=== PATIENT | female | born 1960 | race Two or more races ===

== ENCOUNTER 2016-11-20 17:34 | Emergency (ER) | payer SELFPAY ==
[~2016-11-20] VITALS: Ht 157.5 cm; Wt 55.8 kg
[~2016-11-20 17:34] MED LIST: LEVO75TA50 PO; PHE100C PO
[2016-11-20 18:23] LABS: Basophils # (auto) 0 uL; Basophils % (auto) 0.6 % (0.0-2.0); Eosinophils # (auto) 0.3 uL; Eosinophils % (auto) 5.4 % (0.0-7.0); Hematocrit 33.3 % (36.0-46.0); Hemoglobin 11.7 g/dL (12.2-16.2); Lymphocytes # (auto) 2.9 uL; Lymphocytes % (auto) 50.9 % (10.0-50.0); Mean Corpuscular Hemoglobin 31.1 pg (28.0-32.0); Mean Corpuscular Hgb Conc. 35.1 g/dL (32.0-36.0); Mean Corpuscular Volume 88.6 fL (80.0-100.0); Mean Platelet Volume 8.1 fL (7.4-10.4); Monocytes # (auto) 0.5 uL; Monocytes % (auto) 9.1 % (0.0-12.0); Neutrophils # (auto) 1.9 uL; Platelet Count (auto) 180 10^3/uL (140-450); Red Cell Distribution Width 12.1 % (11.6-16.0); White Blood Cell 5.7 10^3/uL (4.4-10.8)
[2016-11-20 18:41] LABS: Albumin 3.7 g/dL (3.4-5.0); BUN/Creatinine Ratio 23.1; Calcium 8.4 mg/dL (8.5-10.1); Potassium 4.1 mmol/L (3.5-5.1)
[2016-11-20 18:43] LABS: Bilirubin, Total 0.3 mg/dL (0.2-1.0); Total Protein 8.1 g/dL (6.4-8.2)
[2016-11-20 21:02] LABS: Amylase 64 U/L (25-115); Magnesium 2.2 mg/dL (1.6-2.6)
[2016-11-20] MEDS ORDERED: DEXAMETHASONE SOD PHOS 10MG/1ML VIAL INJ ONE (21:05)
[2016-11-20] MEDS ORDERED: MANNITOL FTV 25% 12.5 GM/50 ML 0 ML IV ONE ×2 (21:05→21:11)
[2016-11-20] MEDS ORDERED: MANNITOL 20 % (20GM/100ML) 500 ML IV ONE (21:13)
[2016-11-20] MEDS ORDERED: NALBUPHINE HCL 10 MG/1ml INJECTION IV ONE (21:45)
[2016-11-20] MEDS ORDERED: FAMOTIDINE (10MG/ML) 2ML VL IV ONE (21:45)
[2016-11-20] MEDS ORDERED: ONDANSETRON HCL 4 MG/2 ML VIAL IV ONE (21:45)
[2016-11-20] MEDS ORDERED: SODIUM CHLORIDE 0.9% 1,000 ML IV ONE (21:45)
[2016-11-20 22:38] LABS: Urine Bilirubin Negative (Negative); Urine Color Yellow (Yellow); Urine Glucose Normal (Normal); Urine Ketone Negative (Negative); Urine Nitrite Negative (Negative); Urine RBC 13 /hpf (0 - 4); Urine Squamous Epithelial Cell FEW /hpf (<5); Urine Urobilinogen Normal (Negative); Urine pH 6.5 (5.0-8.0)
[2016-11-20 22:44] LABS: Urine Blood 2+ /uL (Negative)
[2016-11-21 00:51] VITALS: BP 132/73
== END 2016-11-21 00:53 | disposition home or self-care (01) ==
LOC: ER 17:34
DX: K29.70 Gastritis, unspecified, without bleeding (principal); Z79.899 Other long term (current) drug therapy
CPT/HCPCS: 36415; 76705; 80053; 81001; 82150; 83690; 83735; 84484; 84702; 85025; 93005; 96361; 96374; 96375; 99285; J1100; J2300; J2405; J3490; J7030

== ENCOUNTER 2018-09-20 13:06 | Inpatient (IN) | payer SELFPAY ==
[~2018-09-20] VITALS: Ht 160 cm; Wt 55.6 kg
[2018-09-20] MEDS ORDERED: ACETAMINOPHEN 325 MG TAB PO ONE (13:30)
[2018-09-20] MEDS ORDERED: SODIUM CHLORIDE 0.9% 1,000 ML IVB ONE (13:53)
[2018-09-20 14:00] LABS: Basophils # (auto) 0 uL; Basophils % (auto) 0.4 % (0.0-2.0); Eosinophils # (auto) 0.1 uL; Eosinophils % (auto) 1.2 % (0.0-7.0); Hematocrit 31.9 % (36.0-46.0); Hemoglobin 11.1 g/dL (12.2-16.2); Lymphocytes # (auto) 1.9 uL; Lymphocytes % (auto) 22.1 % (10.0-50.0); Mean Corpuscular Hemoglobin 31.3 pg (28.0-32.0); Mean Corpuscular Hgb Conc. 34.9 g/dL (32.0-36.0); Mean Corpuscular Volume 89.6 fL (80.0-100.0); Monocytes # (auto) 0.6 uL; Monocytes % (auto) 7.4 % (0.0-12.0); Neutrophils # (auto) 5.9 uL; Neutrophils % (auto) 68.9 % (37.0-80.0); Nucleated Red Blood Cells % 0.1 %; Platelet Count (auto) 112 10^3/uL (140-450); Red Blood Cells 3.56 10^6/uL (4.0-5.20); Red Cell Distribution Width 12.4 % (11.8-14.3); White Blood Cell 8.5 10^3/uL (4.4-10.8)
[2018-09-20 14:12] LABS: Urine Bacteria MOD /hpf (None Seen); Urine Blood 2+ /uL (Negative); Urine Mucus FEW (None Seen); Urine Specific Gravity 1.013 (1.001-1.035); Urine WBC 851 /hpf (0 - 5); Urine WBC Clumps PRESENT /hpf (None Seen)
[2018-09-20 14:14] LABS: Alanine Aminotransferase 15 U/L (13-56); Albumin 3.7 g/dL (3.4-5.0); Anion Gap 8 (5-15); Aspartate Aminotransferase 27 U/L (15-37); BUN/Creatinine Ratio 16.4; Blood Alcohol < 3.0 mg/dL (0-5); Blood Urea Nitrogen 20 mg/dL (7-18); Calcium 7.8 mg/dL (8.5-10.1); Carbon Dioxide 24 mmol/L (21-32); Chloride 104 mmol/L (98-107); GFR African American 58 mL/min; GFR Non-African American 48 mL/min; Glucose 67 mg/dL (74-106); Sodium 136 mmol/L (136-145)
[2018-09-20 14:19] LABS: Alkaline Phosphatase 156 U/L (45-117); Bilirubin, Total 0.6 mg/dL (0.2-1.0); Total Protein 8.3 g/dL (6.4-8.2)
[2018-09-20] MEDS ORDERED: cefTRIAXone 1GM/50ML D5W 50 ML IV ONE (16:00)
[2018-09-20] MEDS ORDERED: NITROGLYCERIN 0.4 MG SL TAB SL PRN (16:15)
[2018-09-20] MEDS ORDERED: LORazepam 2MG/ML-1ML VIAL IV PRN (16:15)
[2018-09-20] MEDS ORDERED: LACTULOSE 20Gm/30ML SOLN PO PRN (16:15)
[2018-09-20] MEDS ORDERED: traMADol HCL 50 MG TAB PO PRN (16:15)
[2018-09-20] MEDS ORDERED: TEMAZEPAM 15 MG CAP PO PRN (16:15)
[2018-09-20] MEDS ORDERED: DEXTROSE (50%) 50ML SYRG IV PRN (16:15)
[2018-09-20] MEDS ORDERED: MORPHINE SULF INJ 2 MG/ML SYRINGE 1ML IV PRN (16:15)
[2018-09-20] MEDS ORDERED: PROMETHAZINE HCL 25 MG/ML 1ML IV PRN (16:15)
[2018-09-20] MEDS ORDERED: ONDANSETRON HCL 4 MG/2 ML VIAL ONE (16:22)
[2018-09-20] MEDS ORDERED: ONDANSETRON HCL 4 MG/2 ML VIAL IV ONE (16:30)
[2018-09-20] MEDS: D5W/SOD CHLO 0.9% 1,000 ML IV SCH (16:36)
[2018-09-20 17:07] LABS: Alcohol, Urine < 3.0 mg/dL (0-5); Amphetamine Screen, Urine NEGATIVE (NEGATIVE); Barbiturate Scree,Urine NEGATIVE (NEGATIVE); Benzodiazephine Screen, Urine NEGATIVE (NEGATIVE); Cannabinoid Screen, Urine NEGATIVE (NEGATIVE); Cocaine Screen, Urine NEGATIVE (NEGATIVE); Opiate Scree,Urine NEGATIVE (NEGATIVE); Phencyclidine Screen, Urine NEGATIVE (NEGATIVE)
--- NOTE | 2018-09-20 20:00 | NUR ---
Telemetry admit from ER NONA GREER admitted to Telemetry. Patient oriented to PRABHU RAUSCH, primary RN, unit, room 292, bed A, and unit policies regarding patient care and visiting hours. Patient now on continuous telemetry monitoring, tele box #9 and telemetry reading on arrival to unit is NSR. Patient weighed by bedscale and encouraged to call if they need something. Seizure precautions are in place. All questions and concerns addressed, patient verbalized understanding.
[2018-09-20] MEDS: ACCU-CHEK COMFORT CURVE STRIP VI SCH ×2 (20:39→23:46)
[2018-09-20 21:00] VITALS: BP 113/77
[2018-09-20 21:46] VITALS: BP 113/77
[2018-09-20] MEDS ORDERED: LORazepam 0.5 MG TAB PO PRN (23:00)
[2018-09-21] MEDS: D5W/SOD CHLO 0.9% 1,000 ML IV SCH ×2 (01:44→12:39)
--- NOTE | 2018-09-21 04:43 | NUR ---
Critical Lab Received call from lab. Anaerobic and aerobic blood cultures are positive for Gram Neg rods.
[2018-09-21 04:46] VITALS: BP 87/45
[2018-09-21] MEDS: ACCU-CHEK COMFORT CURVE STRIP VI SCH ×5 (04:54→20:27)
--- NOTE | 2018-09-21 05:00 | NUR ---
Hospitalist paged regarding critical lab.
[2018-09-21 08:00] VITALS: BP 99/52
--- NOTE | 2018-09-21 08:00 | NUR ---
Opening Shift Note Assumed care of the patient from the hotel night auditor RN. The patient is A&Ox4, no signs or symptoms of distress. Assessed with dealmaker. Educated the patient on POC and patient verbalized understanding. The patient's call light is within reach, bed alarm on and bed in the lowest, locked position.
[2018-09-21] MEDS ORDERED: cefTRIAXone 1GM/50ML D5W 50 ML IV SCH (09:00)
--- NOTE | 2018-09-21 09:22 | NUR ---
Patient's son called. Spoke with son, after receiving the patient's password. He asked how his mother was doing and I told him she was down for a CT of the abdomen and pelvis. The patient is in good spirits and she is alert and oriented. I do not have any other information because the physician has not, as of now, been in this morning. He said "thank you" and said he will be in this morning to see her. Will continue to monitor. Addendum: 09/21/18 at 0926 by MAGALY JOHNSON RN wrong patient
[2018-09-21 09:24] VITALS: BP 99/52
[2018-09-21] MEDS: PANTOPRAZOLE 40 MG TAB PO SCH (11:02)
[2018-09-21] MEDS: ENOXAPARIN SOD 40 MG/0.4 ML SYRINGE SC SCH (11:03)
--- NOTE | 2018-09-21 11:10 | NUR ---
Dr. Gabriel Del Real at bedside
[2018-09-21] MEDS: PIPERACILLIN-TAZOB 3.375GM 100 ML IV SCH ×2 (12:08→18:00)
[2018-09-21 13:00] VITALS: BP 107/42
--- NOTE | 2018-09-21 13:00 | NUR ---
FEBRILE PATIENT HAD A TEMP OF 100.4. RECHECKED TEMP. AND IT WAS 101.0 F. COOLING MEASURES STARTED. TYLENOL GIVEN AND ICE PACKS PLACED UNDER THE PATIENT'S ARMS. WILL CONTINUE TO MONITOR.
[2018-09-21] MEDS: ACETAMINOPHEN 500 MG TAB PO PRN (13:03)
--- NOTE | 2018-09-21 16:22 | NUR ---
Temp recheck 99.2
--- NOTE | 2018-09-21 16:24 | NUR ---
Low BP Patient blood pressure 85/[address] Gabriel Del Real. He ordered 1000L bolus of NS over 2hrs. Will place order and complete intervention. Will continue to monitor.
[2018-09-21] MEDS ORDERED: SODIUM CHLORIDE 0.9% 1,000 ML IV ONE (16:30)
[2018-09-21 17:00] VITALS: BP 85/49
[2018-09-21 22:00] VITALS: BP 91/49
[2018-09-22] VITALS (7 sets, daily range): BP systolic 103–121; BP diastolic 46–76
[2018-09-22] MEDS: D5W/SOD CHLO 0.9% 1,000 ML IV SCH ×3 (03:36→17:38)
[2018-09-22] MEDS: PIPERACILLIN-TAZOB 3.375GM 100 ML IV SCH ×4 (03:37→17:38)
[2018-09-22] MEDS: ACCU-CHEK COMFORT CURVE STRIP VI SCH ×5 (03:38→16:30)
[2018-09-22 05:58] LABS: Basophils # (auto) 0 uL; Basophils % (auto) 0.4 % (0.0-2.0); Eosinophils # (auto) 0.1 uL; Eosinophils % (auto) 1.6 % (0.0-7.0); Hematocrit 25.4 % (36.0-46.0); Lymphocytes % (auto) 13.8 % (10.0-50.0); Mean Corpuscular Hemoglobin 31.5 pg (28.0-32.0); Mean Corpuscular Hgb Conc. 35.3 g/dL (32.0-36.0); Mean Corpuscular Volume 89.2 fL (80.0-100.0); Monocytes # (auto) 0.4 uL; Monocytes % (auto) 5.5 % (0.0-12.0); Neutrophils # (auto) 5.6 uL; Neutrophils % (auto) 78.7 % (37.0-80.0); Nucleated Red Blood Cells % 0.1 %; Platelet Count (auto) 77 10^3/uL (140-450); Red Blood Cells 2.85 10^6/uL (4.0-5.20); Red Cell Distribution Width 12.7 % (11.8-14.3); White Blood Cell 7.1 10^3/uL (4.4-10.8)
--- NOTE | 2018-09-22 06:44 | NUR ---
UP TO BSC WITH ASSIST, CALL LIGHT WITHIN REACH, REMINDED PT TO CALL FOR ASSIST BEFORE GETTING OOB, PT VERBALIZED UNDERSTANDING.
--- NOTE | 2018-09-22 06:54 | NUR ---
LAB CALLED DILANTIN LEVEL 29.8
--- NOTE | 2018-09-22 07:06 | NUR ---
REPORT GIVEN TO AM NURSE POC REVIEWED
[2018-09-22] MEDS: PANTOPRAZOLE 40 MG TAB PO SCH (10:18)
[2018-09-22] MEDS: ENOXAPARIN SOD 40 MG/0.4 ML SYRINGE SC SCH (10:18)
--- NOTE | 2018-09-22 19:49 | NUR ---
received report from day rn poc reviewed
[2018-09-23] MEDS: PIPERACILLIN-TAZOB 3.375GM 100 ML IV SCH ×5 (02:26→23:41)
[2018-09-23] MEDS: ACCU-CHEK COMFORT CURVE STRIP VI SCH ×7 (02:26→20:00)
--- NOTE | 2018-09-23 05:04 | NUR ---
up to bsc with assist no c/o discomfort, bed alarm intact call light within reach
[2018-09-23 05:24] VITALS: BP 107/61
[2018-09-23] MEDS: D5W/SOD CHLO 0.9% 1,000 ML IV SCH ×2 (05:35→14:15)
[2018-09-23] MEDS: ACETAMINOPHEN 500 MG TAB PO PRN ×2 (05:35→18:38)
[2018-09-23 06:23] LABS: Basophils # (auto) 0 uL; Basophils % (auto) 0.6 % (0.0-2.0); Eosinophils # (auto) 0.2 uL; Hematocrit 25.6 % (36.0-46.0); Lymphocytes # (auto) 1.4 uL; Lymphocytes % (auto) 34.2 % (10.0-50.0); Mean Corpuscular Hemoglobin 31.4 pg (28.0-32.0); Mean Corpuscular Volume 89.7 fL (80.0-100.0); Monocytes # (auto) 0.3 uL; Monocytes % (auto) 8.7 % (0.0-12.0); Neutrophils # (auto) 2.1 uL; Neutrophils % (auto) 52.5 % (37.0-80.0); Platelet Count (auto) 87 10^3/uL (140-450); Red Blood Cells 2.86 10^6/uL (4.0-5.20); Red Cell Distribution Width 12.4 % (11.8-14.3); White Blood Cell 3.9 10^3/uL (4.4-10.8)
--- NOTE | 2018-09-23 06:58 | NUR ---
report given to am nurse poc reviewed
[2018-09-23 08:41] VITALS: BP 106/70
[2018-09-23] MEDS: PANTOPRAZOLE 40 MG TAB PO SCH (10:57)
[2018-09-23] MEDS: ENOXAPARIN SOD 40 MG/0.4 ML SYRINGE SC SCH (10:58)
[2018-09-23 13:00] VITALS: BP 125/68
--- NOTE | 2018-09-23 13:15 | NUR ---
Hospitalist at bedside MD Del Real at bedside, aware of patients status. Awaiting new orders at this time. Per lab, they are working on sensitivity results and will be available in "10 mins" MD aware and will review them. Will place consult with neurologist as ordered, cont care.
--- NOTE | 2018-09-23 16:32 | NUR ---
assessment Patient is a 57 year old female who is alert and oriented. Patients daughter is at bedside translating for us. Patients cognitive abilities are intact. Prior to admission patient lived home with her [place] and functioned independently. Patient informed me she is able to care for her own ADLs. Per patient she will return home to her prior living arrangements post discharge and family will transport her home. Patient informed me she has no need for DME. Patient has no insurance. Patient is over income for [employer]. Patient is a true self pay. I informed patient she has a right to speak to a licensed master social worker regarding all care. I informed patient she has a right to participate in any and all discharge planning. Patient is aware of visiting hours on the hospital floor. I informed patient she has a right to privacy. Patient does not have a POA and advanced directive. I have offered patient information on POA and advanced directives. I informed the patient the advantages and benefits of having an Advanced Directive. Patient verbalized understanding and agreed to discharge plan. Per consult alina ovalle, living situation. Patient has been on medication for her seizures for the past 7 years. Please see above note for living situation. Addendum: 09/23/18 at 1637 by Camille KENNEDY Amended: Links added.
[2018-09-23 17:07] VITALS: BP 120/76
[2018-09-23] MEDS ORDERED: HYDROcodone-ACET 5/325MG TAB PO PRN (18:30)
--- NOTE | 2018-09-23 19:15 | NUR ---
Patient care endorsed endorsed care to Cecy beyer. Patient laying in bed in no acute distress or sob noted. Call light within reach.
--- NOTE | 2018-09-23 19:35 | NUR ---
Opening Shift Note Assumed care of patient, awake and alert. No S/S of distress/SOB or pain. Turkmen speaking. Instructed on POC translated by BLAYNE Garrido. Bed in lowest position, call light within reach, will continue to monitor for changes Q1hr and PRN.
--- NOTE | 2018-09-23 21:20 | NUR ---
Per Pharmacist Sita, she spoke to Dr. Rosa regarding dose of Phenytoin, and per MD to start medicine tonight. Dr. Rosa aware of critical Phenytoin level
[2018-09-23 21:30] VITALS: BP 118/63
[2018-09-23] MEDS ORDERED: PHENYTOIN SODIUM 100 MG CAP PO SCH (22:00)
[2018-09-24] MEDS: D5W/SOD CHLO 0.9% 1,000 ML IV SCH ×2 (02:31→11:58)
[2018-09-24] MEDS: ACCU-CHEK COMFORT CURVE STRIP VI SCH ×4 (04:00→10:59)
[2018-09-24 05:07] VITALS: BP 110/61
[2018-09-24 05:48] LABS: Basophils # (auto) 0 uL; Basophils % (auto) 0.8 % (0.0-2.0); Eosinophils # (auto) 0.2 uL; Eosinophils % (auto) 4.8 % (0.0-7.0); Hemoglobin 9.8 g/dL (12.2-16.2); Lymphocytes # (auto) 1.5 uL; Lymphocytes % (auto) 46.1 % (10.0-50.0); Mean Corpuscular Hgb Conc. 34.9 g/dL (32.0-36.0); Monocytes # (auto) 0.3 uL; Monocytes % (auto) 10.4 % (0.0-12.0); Neutrophils # (auto) 1.2 uL; Neutrophils % (auto) 37.9 % (37.0-80.0); Nucleated Red Blood Cells % 0.1 %; Platelet Count (auto) 99 10^3/uL (140-450); Red Blood Cells 3.14 10^6/uL (4.0-5.20); Red Cell Distribution Width 12.5 % (11.8-14.3); White Blood Cell 3.2 10^3/uL (4.4-10.8)
[2018-09-24] MEDS: PIPERACILLIN-TAZOB 3.375GM 100 ML IV SCH ×2 (05:54→11:58)
--- NOTE | 2018-09-24 06:25 | NUR ---
Received a critical phenytoin level of 23.6, paged hospitalist per protocol, awaiting call back
--- NOTE | 2018-09-24 06:40 | NUR ---
Hospitalist Toni called back and relayed Phenytoin level, no new order at this time, will endorse to barbara CISNEROS
--- NOTE | 2018-09-24 06:43 | NUR ---
Paged Dr. Rosa, awaiting call back
--- NOTE | 2018-09-24 07:50 | NUR ---
Assumed care of pt, awake and alert, no s&s of distress/sob or pain noted, instructed on poc and to call for assist prn, will continue to monitor for changes q1h and prn.
[2018-09-24 09:00] VITALS: BP 121/76
[2018-09-24] MEDS: PANTOPRAZOLE 40 MG TAB PO SCH (09:31)
[2018-09-24] MEDS: ENOXAPARIN SOD 40 MG/0.4 ML SYRINGE SC SCH (09:32)
--- NOTE | 2018-09-24 12:16 | NUR ---
Pt awake and alert, no s&s of distress/sob or pain noted, will continue to monitor for changes q1h and prn.
--- NOTE | 2018-09-24 12:34 | NUR ---
Nutrition Assessment Notes please see attached link for complete assessment Est. Needs BW [id number] kcal (25-30 kcal/kgBW), 56-62 gms pro (1.0-1.1 gm/kgBW r/t elev T). Will continue to monitor pertinent labs and reassess nutrient need prn. Addendum: 09/24/18 at [address] Amended: Links added.
--- NOTE | 2018-09-24 12:41 | NUR ---
Dr. Gabriel Del Real in to see pt, informed lovenox held this am because platelets at 99, pt reports she is not diabetic and on d5ns, and dilantin level elevated and has a scheduled dose for tonight, orders received.
[2018-09-24] MEDS ORDERED: LEVOFLOXACIN 500MG 100 ML IV ONE (12:45)
[2018-09-24 12:49] VITALS: BP 118/58
--- NOTE | 2018-09-24 15:56 | NUR ---
Pt awake and alert, no s&s of distress/sob or pain noted, will continue to monitor for changes q1h and prn.
[2018-09-24 17:00] VITALS: BP 101/66
--- NOTE | 2018-09-24 20:10 | NUR ---
called: Dr. Rosa called to remind RN to hold Dilantin medication tonight.Continue care.
[2018-09-24 22:00] VITALS: BP 116/68
[2018-09-25] MEDS: ACETAMINOPHEN 500 MG TAB PO PRN (03:29)
[2018-09-25 04:58] VITALS: BP 110/51
--- NOTE | 2018-09-25 07:30 | NUR ---
Opening Shift Note Assumed care of patient, patient comfortably resting in bed. No S/S of distress/SOB or pain. Instructed on POC and to call for assist PRN, will continue to monitor for changes Q1hr and PRN.
[2018-09-25 08:00] VITALS: BP 125/59
[2018-09-25 09:00] VITALS: BP 123/59
--- NOTE | 2018-09-25 09:50 | NUR ---
Dr. Nieves gave Orders for Dilantin 300mg po hs. Orders read back and verified.
[2018-09-25] MEDS ORDERED: LEVOFLOXACIN 250MG 50 ML IV SCH (10:00)
[2018-09-25] MEDS: PANTOPRAZOLE 40 MG TAB PO SCH (11:46)
[2018-09-25 12:06] VITALS: BP 125/59
[2018-09-25 13:00] VITALS: BP 117/65
--- NOTE | 2018-09-25 14:03 | NUR ---
Discharge instructions given as ordered. Encourage to follow up with PMD as instructed. All questions and concerns addressed. Patient verbalized understanding. IV removed with catheter intact, pressure dressing applied. Patient taken to vehicle via wheelchair with all personal belongings, accompanied by staff and family member. No distress noted at time of departure.
[2018-09-25] MEDS ORDERED: PHENYTOIN SODIUM 100 MG CAP PO SCH (22:00)
== END 2018-09-25 14:03 | disposition home or self-care (01) | DRG 871 ==
LOC: EDBD 13:06 → ER 13:10 → TELE 16:14 → TELE-WESTW 20:02 → WEST WING 09-23 23:12
PROVIDERS: ADMIT Internal Medicine; ATTEND Family Medicine
DX: A41.51 Sepsis due to Escherichia coli [E. coli] (principal); G93.41 Metabolic encephalopathy; N39.0 Urinary tract infection, site not specified; D63.8 Anemia in other chronic diseases classified elsewhere; E03.9 Hypothyroidism, unspecified; G40.909 Epilepsy, unspecified, not intractable, without status epilepticus; H54.61 Unqualified visual loss, right eye, normal vision left eye; T42.0X5A Adverse effect of hydantoin derivatives, initial encounter; Z91.81 History of falling; Y92.89 Other specified places as the place of occurrence of the external cause; Z79.899 Other long term (current) drug therapy; D69.6 Thrombocytopenia, unspecified; R73.9 Hyperglycemia, unspecified; K80.20 Calculus of gallbladder without cholecystitis without obstruction
CPT/HCPCS: 36415; 70450; 71045; 76705; 80053; 80185; 80307; 80320; 81001; 82962; 83036; 83605; 84484; 85025; 85652; 87040; 87077; 87086; 87186; 93005; 94761; 95819; 96361; 96365; G0378; J0696; J1956; J2405; J2543; J7042

== ENCOUNTER 2018-11-10 17:58 | Emergency (ER) | payer SELFPAY ==
[~2018-11-10] VITALS: Ht 157.5 cm; Wt 54.4 kg
[2018-11-10 18:25] VITALS: BP 93/46
[2018-11-10 19:38] LABS: Basophils # (auto) 0 uL; Basophils % (auto) 0.6 % (0.0-2.0); Eosinophils # (auto) 0.3 uL; Eosinophils % (auto) 5.1 % (0.0-7.0); Hematocrit 31.9 % (36.0-46.0); Hemoglobin 10.9 g/dL (12.2-16.2); Lymphocytes # (auto) 2.7 uL; Lymphocytes % (auto) 49.3 % (10.0-50.0); Mean Corpuscular Hemoglobin 30.1 pg (28.0-32.0); Mean Corpuscular Hgb Conc. 34.1 g/dL (32.0-36.0); Mean Corpuscular Volume 88.4 fL (80.0-100.0); Monocytes # (auto) 0.4 uL; Neutrophils # (auto) 2.1 uL; Nucleated Red Blood Cells % 0.1 %; Platelet Count (auto) 107 10^3/uL (140-450); Red Blood Cells 3.61 10^6/uL (4.0-5.20); Red Cell Distribution Width 13.4 % (11.8-14.3); White Blood Cell 5.5 10^3/uL (4.4-10.8)
[2018-11-10 19:50] LABS: Albumin 3.9 g/dL (3.4-5.0); Anion Gap 9 (5-15); BUN/Creatinine Ratio 20.2; Blood Urea Nitrogen 20 mg/dL (7-18); Calcium 8.4 mg/dL (8.5-10.1); Carbon Dioxide 23 mmol/L (21-32); Chloride 105 mmol/L (98-107); GFR African American 74 mL/min; GFR Non-African American 61 mL/min; Glucose 96 mg/dL (74-106); Magnesium 2.5 mg/dL (1.6-2.6); Potassium 4.3 mmol/L (3.5-5.1); Sodium 137 mmol/L (136-145)
[2018-11-10 19:56] LABS: Alanine Aminotransferase 20 U/L (13-56); Alkaline Phosphatase 192 U/L (45-117); Aspartate Aminotransferase 29 U/L (15-37); Bilirubin, Total 0.2 mg/dL (0.2-1.0); Total Protein 8.8 g/dL (6.4-8.2)
== END 2018-11-11 03:00 | disposition left against medical advice (07) ==
LOC: ER 18:07
DX: R42 Dizziness and giddiness (principal); Z53.21 Procedure and treatment not carried out due to patient leaving prior to being seen by health care provider
CPT/HCPCS: 36415; 70450; 71046; 80053; 83735; 84484; 85025; 93005

== ENCOUNTER 2018-11-11 17:39 | Emergency (ER) | payer SELFPAY ==
[~2018-11-11] VITALS: Ht 154.9 cm; Wt 56.7 kg
[2018-11-11 18:11] LABS: Hematocrit 26.8 % (36.0-46.0); Hemoglobin 9.5 g/dL (12.2-16.2); Mean Corpuscular Hemoglobin 31.3 pg (28.0-32.0); Mean Corpuscular Hgb Conc. 35.4 g/dL (32.0-36.0); Mean Corpuscular Volume 88.3 fL (80.0-100.0); Platelet Count (auto) 79 10^3/uL (140-450); Red Blood Cells 3.03 10^6/uL (4.0-5.20); Red Cell Distribution Width 12.9 % (11.8-14.3)
[2018-11-11 18:28] LABS: Albumin 3.4 g/dL (3.4-5.0); Anion Gap 8 (5-15); Band Neutrophils % (manual) 0; Basophils % (manual) 0 (0.0-2.0); Blast Cells 0; Blood Urea Nitrogen 21 mg/dL (7-18); Calcium 7.4 mg/dL (8.5-10.1); Carbon Dioxide 24 mmol/L (21-32); Chloride 108 mmol/L (98-107); Glucose 91 mg/dL (74-106); Magnesium 2.5 mg/dL (1.6-2.6); Metamyelocytes % 0; Myelocytes % 0; Potassium 3.9 mmol/L (3.5-5.1); Promyelocytes % 0; Reactive Lymphocytes 0; Sodium 140 mmol/L (136-145)
[2018-11-11 18:33] LABS: Alanine Aminotransferase 16 U/L (13-56); Alkaline Phosphatase 162 U/L (45-117); Aspartate Aminotransferase 19 U/L (15-37); BUN/Creatinine Ratio 26.6; Bilirubin, Total 0.3 mg/dL (0.2-1.0); GFR African American 95 mL/min; GFR Non-African American 79 mL/min; Total Protein 7.2 g/dL (6.4-8.2)
[2018-11-11] MEDS ORDERED: ONDANSETRON HCL 4 MG/2 ML VIAL IV ONE (20:45)
[2018-11-11] MEDS ORDERED: SODIUM CHLORIDE 0.9% 1,000 ML IV ONE (20:45)
[2018-11-11 20:51] LABS: Lymphocytes % (manual) 59 (10.0-50.0)
[2018-11-11 20:52] LABS: Eosinophils % (manual) 5 (0-7); Monocytes % (manual) 7 (0-12)
[2018-11-11 20:59] LABS: Urine Bacteria NONE SEEN /hpf (None Seen); Urine Blood 1+ /uL (Negative); Urine Specific Gravity 1.015 (1.001-1.035); Urine WBC 3 /hpf (0 - 5)
[2018-11-11 21:05] LABS: INR 1.05 (0.9-1.15); Partial Thromboplastin Time 29.9 sec (23.64-32.05)
[2018-11-12 05:54] VITALS: BP 104/58
== END 2018-11-12 06:13 | disposition home or self-care (01) ==
LOC: EDUNIT# 17:39 → EDBD 17:39 → ER 17:43
DX: R42 Dizziness and giddiness (principal); R53.1 Weakness
CPT/HCPCS: 36415; 70450; 74176; 80053; 81001; 83690; 83735; 84484; 85007; 85027; 85610; 85730; 93005; 96361; 96374; 99284; J2405

== ENCOUNTER 2018-11-15 16:00 | Inpatient (IN) | payer SELFPAY ==
[~2018-11-15] VITALS: Ht 160 cm; Wt 55.6 kg
[2018-11-15 17:20] LABS: Basophils # (auto) 0 uL; Basophils % (auto) 0.7 % (0.0-2.0); Eosinophils # (auto) 0.2 uL; Eosinophils % (auto) 5.9 % (0.0-7.0); Hemoglobin 10.2 g/dL (12.2-16.2); Lymphocytes % (auto) 54.1 % (10.0-50.0); Mean Corpuscular Hemoglobin 30.5 pg (28.0-32.0); Mean Corpuscular Hgb Conc. 35.2 g/dL (32.0-36.0); Mean Corpuscular Volume 86.5 fL (80.0-100.0); Monocytes # (auto) 0.3 uL; Monocytes % (auto) 7.2 % (0.0-12.0); Neutrophils # (auto) 1.2 uL; Neutrophils % (auto) 32.1 % (37.0-80.0); Nucleated Red Blood Cells % 0.1 %; Platelet Count (auto) 81 10^3/uL (140-450); Red Blood Cells 3.35 10^6/uL (4.0-5.20); Red Cell Distribution Width 12.7 % (11.8-14.3); White Blood Cell 3.7 10^3/uL (4.4-10.8)
[2018-11-15 17:54] LABS: Alanine Aminotransferase 20 U/L (13-56); Albumin 3.6 g/dL (3.4-5.0); Anion Gap 9 (5-15); Aspartate Aminotransferase 32 U/L (15-37); BUN/Creatinine Ratio 21.1; Blood Urea Nitrogen 15 mg/dL (7-18); Calcium 7.8 mg/dL (8.5-10.1); Carbon Dioxide 24 mmol/L (21-32); Chloride 92 mmol/L (98-107); GFR African American 108 mL/min; GFR Non-African American 89 mL/min; Glucose 98 mg/dL (74-106); Potassium 3.9 mmol/L (3.5-5.1); Sodium 125 mmol/L (136-145)
[2018-11-15 17:59] LABS: Alkaline Phosphatase 165 U/L (45-117); Bilirubin, Total 0.2 mg/dL (0.2-1.0); Total Protein 7.8 g/dL (6.4-8.2)
[2018-11-15 18:11] LABS: Urine WBC None Seen /hpf (0 - 5)
[2018-11-15 18:50] LABS: Urine Bacteria NONE SEEN /hpf (None Seen); Urine Blood 1+ /uL (Negative); Urine Specific Gravity 1.009 (1.001-1.035)
[2018-11-15] MEDS ORDERED: MECLIZINE HCL 25 MG TAB PO PRN (19:15)
[2018-11-15] MEDS ORDERED: LACTULOSE 20Gm/30ML SOLN PO PRN (19:15)
[2018-11-15] MEDS ORDERED: NITROGLYCERIN 0.4 MG SL TAB SL PRN (19:15)
[2018-11-15] MEDS ORDERED: traMADol HCL 50 MG TAB PO PRN (19:15)
[2018-11-15] MEDS ORDERED: TEMAZEPAM 15 MG CAP PO PRN (19:15)
[2018-11-15] MEDS ORDERED: ACETAMINOPHEN 500 MG TAB PO PRN (19:15)
[2018-11-15] MEDS ORDERED: MORPHINE SULF INJ 2 MG/ML SYRINGE 1ML IV PRN (19:15)
[2018-11-15 19:49] LABS: Amylase 113 U/L (25-115); Lipase 96 U/L (73-393)
[2018-11-15] MEDS: SODIUM CHLORIDE 0.9% 1,000 ML IV SCH (20:00)
[2018-11-15 20:10] LABS: Alcohol, Urine < 3.0 mg/dL (0-5); Amphetamine Screen, Urine NEGATIVE (NEGATIVE); Barbiturate Scree,Urine NEGATIVE (NEGATIVE); Benzodiazephine Screen, Urine NEGATIVE (NEGATIVE); Opiate Scree,Urine NEGATIVE (NEGATIVE); Phencyclidine Screen, Urine NEGATIVE (NEGATIVE)
[2018-11-15 20:11] LABS: Cannabinoid Screen, Urine NEGATIVE (NEGATIVE); Cocaine Screen, Urine NEGATIVE (NEGATIVE)
[2018-11-15 20:13] LABS: Creatine Kinase IFCC 111 U/L (26-192)
[2018-11-15 21:15] VITALS: BP 109/59
--- NOTE | 2018-11-15 21:15 | NUR ---
Telemetry admit from [facility] admitted to Telemetry unit after no SBAR received. Patient oriented to GERMAN HENAO, RN primary RN, unit, room, bed, and unit policies regarding patient care and visiting hours. Patient now on continuous telemetry monitoring, tele box # [id number] and telemetry reading on arrival to unit is sinus rhythm at 60 beats per minute. Patient weighed by bedscale and encouraged to call if they need something. All questions and concerns addressed through biofuels technology manager Ge CISNEROS, patient verbalized understanding. Bed in lowest locked position, side rails up x2, call light within reach, bed alarm on. Seizure precautions in place. Patient educated on calling for help before ambulating, patient verbalized understanding. No s/s of distress, will round every hour and as needed and continue to monitor.
[2018-11-15 21:25] VITALS: BP 109/59
[2018-11-15 21:58] VITALS: BP 109/59
[2018-11-15] MEDS ORDERED: LEVO75TA50 PO (22:39)
[2018-11-15] MEDS ORDERED: PHE100C PO (22:39)
[2018-11-15] MEDS: PROMETHAZINE HCL 25 MG/ML 1ML IV PRN (22:41)
[2018-11-15] MEDS: ATORVASTATIN 20 MG TAB PO SCH (22:41)
[2018-11-15] MEDS: FAMOTIDINE 20 MG TAB PO SCH (22:41)
[2018-11-16] MEDS: SODIUM CHLORIDE 0.9% 1,000 ML IV SCH ×2 (04:48→15:27)
[2018-11-16 05:10] VITALS: BP 102/47
[2018-11-16 06:08] LABS: Potassium 4.3 mmol/L (3.5-5.1)
[2018-11-16 06:17] LABS: Albumin 3.8 g/dL (3.4-5.0); BUN/Creatinine Ratio 15.5; Bilirubin, Total 0.3 mg/dL (0.2-1.0); Calcium 8.1 mg/dL (8.5-10.1); Total Protein 7.9 g/dL (6.4-8.2)
[2018-11-16] MEDS: PROMETHAZINE HCL 25 MG/ML 1ML IV PRN (06:25)
--- NOTE | 2018-11-16 06:50 | NUR ---
Bowel Movement Patient had large, soft, formed, brown bowel movement. Will continue care. Addendum: 11/16/18 at 0659 by GERMAN HENAO RN RN CORRECTION: Please disregard, wrong patient.
--- NOTE | 2018-11-16 06:58 | NUR ---
Closing Note Patient lying in bed, awake and alert. No s/s of distress. Will endorse care to dayshift RN.
--- NOTE | 2018-11-16 07:40 | NUR ---
Opening Shift Note Assumed care of patient, awake and alert. No S/S of distress/SOB or pain. Instructed on POC and to call for assist PRN, will continue to monitor for changes Q1hr and PRN. Patient ambulated to bathroom.
[2018-11-16 09:00] VITALS: BP 113/63
[2018-11-16] MEDS ORDERED: ASPirin 81 mg TAB PO SCH (10:00)
[2018-11-16] MEDS: FAMOTIDINE 20 MG TAB PO SCH ×2 (10:09→22:44)
--- NOTE | 2018-11-16 18:55 | NUR ---
Closing Note Patient sitting up in bed eating supper uncomplaining. Care will be endorsed to hourly shift manager RN.
--- NOTE | 2018-11-16 18:55 | NUR ---
Closing Note Patient sitting up in bed eating supper uncomplaining. Family members at bedside. Care will be endorsed to scene shifter RN. Addendum: 11/16/18 at 1922 by ALOK BAXTER RN Ignore note...wrong entry
--- NOTE | 2018-11-16 19:00 | NUR ---
Opening Shift Note Assumed care of patient, awake and alert. No S/S of distress/SOB or pain. Bed in lowest locked position, side rails up x2, call light within reach, seizure precautions in place. Instructed on POC and to call for assist PRN, will continue to monitor for changes Q1hr and PRN.
[2018-11-16 21:59] VITALS: BP 115/61
[2018-11-16] MEDS: ATORVASTATIN 20 MG TAB PO SCH (22:44)
[2018-11-17] MEDS: SODIUM CHLORIDE 0.9% 1,000 ML IV SCH ×3 (01:02→21:02)
[2018-11-17 04:39] VITALS: BP 121/64
--- NOTE | 2018-11-17 06:45 | NUR ---
Critical Dilantin Received notification from Mary in lab that patient has critical Dilantin level of 29.7. This is noted to be trending down from patient's critical lab value of 39.[address] Hernandez aware, states in last progress note to continue holding Dilantin. Will page community recreation programmer hospitalist to inform them of critical lab value and continue monitoring patient.
--- NOTE | 2018-11-17 06:50 | NUR ---
Hospitalist Paged teacher physically impaired hospitalist paged regarding critical Dilantin level. Will continue to monitor patient.
--- NOTE | 2018-11-17 07:15 | NUR ---
Closing Note Patient lying in bed, eyes closed, respirations even and unlabored, appears asleep. No s/s of distress. Dayshift RN made aware of critical Dilantin and care endorsed.
--- NOTE | 2018-11-17 07:50 | NUR ---
Opening Shift Note Assumed care of patient, awake and alert. No S/S of distress/SOB or pain. Instructed on POC and to call for assist PRN, will continue to monitor for changes Q1hr and PRN.
[2018-11-17 09:00] VITALS: BP 114/59
[2018-11-17 09:38] LABS: BUN/Creatinine Ratio 15.6; Calcium 7.9 mg/dL (8.5-10.1); Potassium 4.1 mmol/L (3.5-5.1)
--- NOTE | 2018-11-17 10:00 | NUR ---
Family members at bedside.
[2018-11-17] MEDS: FAMOTIDINE 20 MG TAB PO SCH ×2 (11:03→22:49)
[2018-11-17 13:00] VITALS: BP 99/52
--- NOTE | 2018-11-17 16:00 | NUR ---
Patient feeling nauseous, refused medication at this time.
[2018-11-17 17:00] VITALS: BP 121/65
--- NOTE | 2018-11-17 19:04 | NUR ---
Patient sitting up in bed, uncomplaining. Care endorsed to restaurant shift leader RN.
[2018-11-17 21:46] VITALS: BP 112/60
[2018-11-17] MEDS: ATORVASTATIN 20 MG TAB PO SCH (22:49)
[2018-11-18 04:33] VITALS: BP 114/54
[2018-11-18] MEDS: SODIUM CHLORIDE 0.9% 1,000 ML IV SCH ×2 (05:52→18:03)
--- NOTE | 2018-11-18 06:48 | NUR ---
Closing Note Patient lying in bed, awake and alert. No s/s of distress. Will endorse care to dayshift RN.
--- NOTE | 2018-11-18 08:00 | NUR ---
Opening Shift Note Assumed care of patient, awake, alert and oriented X4. No S/S of distress/SOB or pain. Patient is New Zealander speaking only but does understand some Khmer, translation provided by ABBY Turner. Tele# 30, sinus rhythm @ 82 bpm. IV to right antecubital, 20 gauge, patent and infusing 0.9% NS @ 100 ml/hr. Instructed on POC and to call for assist PRN, verbalized understanding. Bed locked, in lowest position, call light within reach, will continue to monitor for changes Q1hr and PRN.
[2018-11-18 09:43] VITALS: BP 118/55
[2018-11-18 09:44] LABS: Free T3 1.43 pg/mL (2.3-4.2); Free T4 (Free Thyroxine) 0.4 ng/dL (0.89-1.76)
[2018-11-18] MEDS: FAMOTIDINE 20 MG TAB PO SCH ×2 (11:16→22:16)
[2018-11-18 13:00] VITALS: BP 117/52
--- NOTE | 2018-11-18 13:15 | NUR ---
Care endorsed to BLAYNE Bedolla, night nurse.
[2018-11-18 17:00] VITALS: BP 102/64
--- NOTE | 2018-11-18 19:20 | NUR ---
Opening Shift Note Assumed care of patient, awake and alert. No S/S of distress/SOB or pain. Instructed on POC and to call for assist PRN, will continue to monitor for changes Q1hr and PRN. Side rails up x2. Bed locked in lowest position. Call light within reach.
[2018-11-18 22:00] VITALS: BP 111/54
[2018-11-18] MEDS: ATORVASTATIN 20 MG TAB PO SCH (22:16)
--- NOTE | 2018-11-19 02:39 | NUR ---
Rounds Patient in bed asleep with no signs of distress/sob/pain. Will continue to monitor.
--- NOTE | 2018-11-19 03:16 | NUR ---
Ambulating Assisted patient to restroom. Patient ambulated with steady gait. No complaints of dizziness. Will assist patient back to bed.
[2018-11-19 04:57] VITALS: BP 117/58
[2018-11-19] MEDS: SODIUM CHLORIDE 0.9% 1,000 ML IV SCH (07:01)
[2018-11-19] MEDS: PROMETHAZINE HCL 25 MG/ML 1ML IV PRN (07:01)
--- NOTE | 2018-11-19 07:21 | NUR ---
Endorsed care to day shift RN. Patient in bed awake with no signs of distress.
--- NOTE | 2018-11-19 08:00 | NUR ---
Opening Shift Note Assumed care of patient, awake, alert and oriented X4. No S/S of distress/SOB or pain. Patient is Indian speaking only but does understand some Danish, translation provided by ABBY Turner. IV to right antecubital, 20 gauge, patent and infusing 0.9% NS @ 100 ml/hr. Instructed on POC and to call for assist PRN, verbalized understanding. Bed locked, in lowest position, call light within reach, will continue to monitor for changes Q1hr and PRN.
[2018-11-19 09:00] VITALS: BP 120/65
[2018-11-19] MEDS ORDERED: LEVOTHYROXINE SODIUM 25 MCG TAB PO ONE (09:00)
[2018-11-19] MEDS ORDERED: traMADol HCL 50 MG TAB PO PRN (09:00)
[2018-11-19] MEDS ORDERED: MECL-87 PO (10:40)
--- NOTE | 2018-11-19 10:45 | NUR ---
ROUNDS Dr Cisneros at bedside for rounds, new orders received and followed through. Patient and patient's family at bedside updated on plan of care, verbalized understanding.
[2018-11-19] MEDS: FAMOTIDINE 20 MG TAB PO SCH (11:02)
[2018-11-19 13:00] VITALS: BP 129/63
[2018-11-19 15:22] VITALS: BP 129/63
--- NOTE | 2018-11-19 17:35 | NUR ---
Discharge instructions given as ordered. Encourage to follow up with PMD as instructed. All questions and concerns addressed. Patient verbalized understanding. Medication reconciliation form completed and copy given to patient. Home medications held in Pharmacy returned to patient. IV removed with catheter intact, pressure dressing applied. Patient taken to vehicle via wheelchair with all personal belongings, accompanied by staff and family member. No distress noted at time of departure.
[2018-11-20] MEDS ORDERED: LEVOTHYROXINE SODIUM 25 MCG TAB PO SCH (07:00)
== END 2018-11-19 17:35 | disposition home or self-care (01) | DRG 641 ==
LOC: ER 16:00 → EDBD 16:00 → TELE 19:37 → TELE-WESTW 21:13 → WEST WING 11-18 13:25
PROVIDERS: ADMIT Internal Medicine; ATTEND Internal Medicine
DX: E87.1 Hypo-osmolality and hyponatremia (principal); T42.0X5A Adverse effect of hydantoin derivatives, initial encounter; D69.6 Thrombocytopenia, unspecified; E03.9 Hypothyroidism, unspecified; G40.909 Epilepsy, unspecified, not intractable, without status epilepticus; H54.61 Unqualified visual loss, right eye, normal vision left eye; Z83.3 Family history of diabetes mellitus; Z86.011 Personal history of benign neoplasm of the brain; Y92.89 Other specified places as the place of occurrence of the external cause
CPT/HCPCS: 36415; 70450; 80048; 80053; 80185; 80307; 81001; 82150; 82550; 83690; 84295; 84439; 84443; 84481; 84484; 85025; 85652; 87081; 93005; 96360; G0378

== ENCOUNTER 2022-04-30 08:47 | Emergency (ER) | payer MEDICAID ==
[~2022-04-30] VITALS: Ht 157.5 cm; Wt 54.0 kg
[~2022-04-30 08:47] MED LIST changes: +LEV75T PO; -LEVO75TA50 PO; +MECL25TA18 PO
[2022-04-30] MEDS ORDERED: SODIUM CHLORIDE 0.9% 1,000 ML IV ONE (09:30)
[2022-04-30 09:36] LABS: Urine Bacteria FEW /hpf (None Seen); Urine Blood Negative /uL (Negative); Urine Hyaline Cast FEW /lpf (0 - 2); Urine Mucus FEW (None Seen); Urine Specific Gravity 1.024 (1.001-1.035); Urine WBC 3 /hpf (0 - 5)
[2022-04-30 09:55] LABS: Basophils # (auto) 0 10 ^3/uL (0-0.2); Basophils % (auto) 0.4 % (0.0-2.0); Eosinophils # (auto) 0.1 10 ^3/uL (0-0.8); Eosinophils % (auto) 2.2 % (0.0-7.0); Hematocrit 33.6 % (36.0-46.0); Hemoglobin 11.2 g/dL (12.2-16.2); Lymphocytes % (auto) 29.9 % (10.0-50.0); Mean Corpuscular Hemoglobin 30.3 pg (28.0-32.0); Mean Corpuscular Hgb Conc. 33.3 g/dL (32.0-36.0); Monocytes # (auto) 0.3 10 ^3/uL (0-1.3); Monocytes % (auto) 9.9 % (0.0-12.0); Neutrophils # (auto) 1.9 10 ^3/uL (1.6-8.6); Neutrophils % (auto) 57.6 % (37.0-80.0); White Blood Cell 3.3 10^3/uL (4.4-10.8)
[2022-04-30] MEDS ORDERED: MIDAZOLAM DRIP 50 mg/50mL 50 ML IV SCH (10:00)
[2022-04-30] MEDS ORDERED: MIDAZOLAM HCL 5 MG/ML-1ML VIAL IV ONE (10:00)
[2022-04-30 10:01] LABS: Alcohol, Urine < 3.0 mg/dL (0-10); Amphetamine Screen, Urine NEGATIVE (NEGATIVE); Barbiturate Scree,Urine NEGATIVE (NEGATIVE); Benzodiazephine Screen, Urine NEGATIVE (NEGATIVE); Cannabinoid Screen, Urine NEGATIVE (NEGATIVE); Cocaine Screen, Urine NEGATIVE (NEGATIVE); Opiate Scree,Urine NEGATIVE (NEGATIVE); Phencyclidine Screen, Urine NEGATIVE (NEGATIVE)
[2022-04-30] MEDS ORDERED: MIDAZOLAM DRIP 50 mg/50mL 50 ML IV ONE (10:06)
[2022-04-30] MEDS ORDERED: TRANEXAMIC ACID 1,000 MG in SODIUM CHL 0.9% 100 ML IV ONE (10:15)
[2022-04-30] MEDS ORDERED: SODIUM CHL 3% 200 ML IV ONE (10:15)
[2022-04-30 10:18] LABS: INR 1.1 (0.9-1.15); Partial Thromboplastin Time 25.1 sec (24.6-33.4)
[2022-04-30 10:25] LABS: Alanine Aminotransferase 19 U/L (13-56); Albumin 3.3 g/dL (3.4-5.0); Anion Gap 12 (5-15); Aspartate Aminotransferase 36 U/L (15-37); Blood Alcohol < 3.0 mg/dL (0-5); Blood Urea Nitrogen 26 mg/dL (7-18); Calcium 8.5 mg/dL (8.5-10.1); Carbon Dioxide 20 mmol/L (21-32); Chloride 108 mmol/L (98-107); GFR African American 78 mL/min; GFR Non-African American 65 mL/min; Glucose 151 mg/dL (74-106); Magnesium 2.4 mg/dL (1.6-2.6); Potassium 5.1 mmol/L (3.5-5.1); Sodium 140 mmol/L (136-145)
[2022-04-30] MEDS ORDERED: TRANEXAMIC ACID 10 ML ONE (10:26)
[2022-04-30 10:29] LABS: Alkaline Phosphatase 119 U/L (45-117); Bilirubin, Total 0.9 mg/dL (0.2-1.0); Total Protein 6.9 g/dL (6.4-8.2)
[2022-04-30 10:31] LABS: Lactic Acid w/Reflex 3.9 mmol/L (0.4-2.0)
[2022-04-30 10:53] VITALS: BP 89/55
[2022-04-30] MEDS ORDERED: NOREPINEPHRINE 8 MG/250ML KIT 250 ML IV ONE (10:56)
[2022-04-30] MEDS ORDERED: NOREPINEPHRINE 8 MG/250ML KIT 250 ML IV SCH (11:00)
== END 2022-04-30 11:34 | disposition short-term general hospital (02) ==
LOC: EDBD 08:47 → EDUNIT# 08:47 → ER 08:55
DX: S06.2X0A Diffuse traumatic brain injury without loss of consciousness, initial encounter (principal); R41.82 Altered mental status, unspecified; G40.909 Epilepsy, unspecified, not intractable, without status epilepticus; Z20.822 Contact with and (suspected) exposure to COVID-19; X58.XXXA Exposure to other specified factors, initial encounter; Y93.89 Activity, other specified; Y92.89 Other specified places as the place of occurrence of the external cause; Y99.8 Other external cause status
CPT/HCPCS: 31500; 36415; 70450; 71045; 72125; 80053; 80307; 80320; 81001; 82962; 83605; 83735; 84484; 85025; 85379; 85610; 85730; 87426; 93005; 96365; 99291; J2250; 94002